=== PATIENT | male | born 1965 | race Caucasian/White ===

== ENCOUNTER → 2023-12-16 13:19 | Outpatient (REF) | payer OTHER, SELFPAY | LOC: RAD 13:19 | PROVIDERS: ATTENDING PHYSICIAN Physical Medicine & Rehabilitation; FAMILY PHYSICIAN Family Medicine | DX: S46.019A Strain of muscle(s) and tendon(s) of the rotator cuff of unspecified shoulder, initial encounter (principal) | CPT/HCPCS: 73030 ==